=== PATIENT | female | born 1945 | race Caucasian/White ===

== ENCOUNTER 2017-10-19 11:47 | Emergency (ER) | payer MEDICARE ==
[~2017-10-19] VITALS: Ht 165.1 cm; Wt 91.3 kg
[~2017-10-19 11:47] MED LIST: DENO60P SQ; MULTTAB67 PO; PLAQ200T PO; POTA-163 PO
[2017-10-19 12:23] VITALS: BP 151/67; PULSE 103; RESP 16; TEMP 99; O2SAT 94
[2017-10-19] MEDS ORDERED: RESP: ALBUTEROL 2.5 MG/3 ML NEB (SCH) INH ONE (13:00)
[2017-10-19] MEDS ORDERED: predniSONE 20 MG TAB PO ONE (13:00)
--- NOTE | 2017-10-19 13:22 | PD ---
HPI Chief Complaint: Cold / Flu Symptoms Time Seen by Provider: 12:42 Travel History International Travel<30 days: No Contact w/Intl Traveler<30days: No Traveled to known affect area: No History of Present Illness HPI 71-year-old female here with productive cough and wheezing times one week. She reports subjective fevers. Symptom severity is moderate. She denies chest pain or palpitations. She does report intermittent shortness of breath with coughing episodes. Symptoms are unrelieved with [id number] DayQuil and NyQuil. No sick contacts or foreign travel. PFSH Past Medical History Arthritis: Yes Asthma: No Autoimmune Disease: Yes (LUPUS) Blood Disorders: No Anxiety: Yes Depression: Yes Heart Rhythm Problems: Yes Cancer: Yes (LEFT BREAST 2003) Cardiovascular Problems: No High Cholesterol: No Chemotherapy: Yes (2003 2004) Chest Pain: No Congestive Heart Failure: No COPD: No Cerebrovascular Accident: No Diabetes: No Diminished Hearing: No Endocrine: No Gastrointestinal Disorders: Yes (GASTROENTERITIS) GERD: Yes Glaucoma: No Genitourinary: No Headaches: No Hepatitis: No Hiatal Hernia: No Hypertension: No Immune Disorder: No Implanted Vascular Access Dvce: Yes Kidney Stones: No Musculoskeletal: Yes Neurologic: No Psychiatric: No Reproductive: No Respiratory: Yes Immunizations Current: Yes ([id number], HEP B VACC) Migraines: No Myocardial Infarction: No Radiation Therapy: Yes (2003 2004) Renal Failure: No Seizures: No Sickle Cell Disease: No Sleep Apnea: Yes Thyroid Disease: Yes (HYPERPARATHYROIDISM) Ulcer: No ?: Not Menopausal: Yes Dilation and Curettage (D&C): Yes Past Surgical History Abdominal Surgery: Yes (CHOLECYSTECTOMY 2000) AICD: No Appendectomy: No Arteriovenous Shunt: No Cardiac Surgery: No Section: Yes (X 1) Cholecystectomy: Yes Ear Surgery: No Endocrine Surgery: No Eye Surgery: Yes (EDUARDA CATARACTS) Genitourinary Surgery: No Gynecologic Surgery: Yes (C SECTION 1979 D AND C X2) Insulin Pump: No Joint Replacement: Yes (BOTH KNEES) Neurologic Surgery: Yes (CYST RMOVED FROM L5S1) Oral Surgery: Yes (DENTAL IMPLANTS) Pacemaker: No Thoracic Surgery: No Tonsillectomy: Yes Other Surgery: Yes (LEFT BREAST LUMPECTOMY) Social History Alcohol Use: No (OCCASIONAL) Tobacco Use: No (STOPPED 1997-smoked 1/2 for 20+ yrs) Substance Use: No Allergies-Medications (Allergen,Severity, Reaction): Coded Allergies: diclofenac (Verified Allergy, Severe, EDEMA & FACIAL SWELLING, 10/19/17) Reported Meds & Prescriptions Reported Meds & Active Scripts Active Reported Azulfidine (Sulfasalazine) 500 Mg Tab 1,000 Mg PO Q6H Plaquenil (Hydroxychloroquine Sulfate) 200 Mg Tab 200 Mg PO EVERY OTHER DAY Take with food Multiple Vitamin 1 Tab 1 Tab PO DAILY Prolia Inj (Denosumab) 60 Mg/Ml Inj 60 Mg SQ Q180D Review of Systems Except as stated in HPI: all other systems reviewed are Neg General / Constitutional: Positive: Fever Eyes: No: Visual changes HENT: No: Headaches Cardiovascular: No: Chest Pain or Discomfort Respiratory: Positive: Cough, Wheezing Gastrointestinal: No: Abdominal Pain Genitourinary: No: Dysuria Musculoskeletal: No: Pain Skin: No Rash Physical Exam Narrative GENERAL: Alert and well-appearing 71-year-old female SKIN: Warm and dry. No rash HEAD: Normocephalic. EYES: No injection or drainage. NECK: Supple, trachea midline. CARDIOVASCULAR: Regular rate and rhythm without murmurs, gallops, or rubs. RESPIRATORY: Breath sounds equal bilaterally. No accessory muscle use. Faint expiratory wheezes. Rhonchorous cough. GASTROINTESTINAL: Abdomen soft, non-tender, nondistended. MUSCULOSKELETAL: No cyanosis, or edema. BACK: Nontender without obvious deformity. No CVA tenderness. Data Data Last Documented VS Vital Signs Date Time Temp Pulse Resp B/P (MAP) Pulse Ox O2 Delivery O2 Flow Rate FiO2 10/19/17 12:23 99.0 103 16 151/67 (95) 94 Orders Orders Influenzae A/B Antigen (10/19/17 12:54) Chest, Single Ap (10/19/17 12:54) Albuterol Neb (Albuterol Neb) (10/19/17 13:00) Prednisone (Deltasone) (10/19/17 13:00) MDM Medical Decision Making Medical Screen Exam Complete: Yes Emergency Medical Condition: Yes Differential Diagnosis Bronchitis, pneumonia, influenza Narrative Course 71-year-old male here with productive cough and wheezing intermittently times one week. She is nontoxic appearing despite mild abnormalities and vitals. She was 94% on room air. She did have expiratory wheezes. She was given steroids and DuoNeb in the ER and observed. Chest x-ray: No acute disease Influenza: Positive Endings discussed with patient. She was reexamined he is reporting symptom improvement after steroids and albuterol neb. Repeat vitals HR 98, RR 18, 02 97 % She will be treated for influenza a and covered with azithromycin for possible bronchial pneumonia. Diagnosis Primary Impression: Influenza A Additional Impression: Bronchitis Referrals: Primary Care Physician Additional Instructions: Medications as prescribed. Follow-up the primary doctor. Stay well hydrated and rest. Scripts Benzonatate (Tessalon Perles) 100 Mg Cap 200 MG PO TID Y for COUGH for 3 Days, CAP 0 Refills Prov: Sherry Pascal 10/19/17 Albuterol 8.5 GM Inh (Proair Hfa 8.5 GM Inh) 90 Mcg/Act Aer 2 PUFF INH Q4-6H Y for SHORTNESS OF BREATH, #1 INHALER 0 Refills 108 mcg/actuation Prov: Sherry Pascal 10/19/17 Prednisone (Prednisone) 20 Mg Tab 40 MG PO DAILY, #10 TAB 0 Refills Take 40 mg (2 tablets) daily for 5 days Prov: Sherry Pascal 10/19/17 Azithromycin (Azithromycin) 250 Mg Tab 250 MG PO DIRECTED for Infection, #6 TAB 0 Refills Take 2 tabs (500 mg) on day 1 then 1 tab daily x 4 days. Prov: Sherry Pascal 10/19/17 Oseltamivir (Tamiflu) 75 Mg Cap 75 MG PO BID for Mgmt Viral Infection for 5 Days, #10 CAP 0 Refills Prov: Sherry Pascal 10/19/17 Disposition: 01 DISCHARGE HOME Condition: Stable Sherry Pascal Oct 19, 2017 13:22
[2017-10-19] MEDS ORDERED: SULF500 PO (13:28)
--- NOTE | 2017-10-19 14:14 | RADRPT ---
EXAM DATE/TIME: 10/19/2017 13:47 [facility] COMPARISON: No previous studies available for comparison. INDICATIONS : Cough, fever MEDICAL HISTORY : None. SURGICAL HISTORY : None. ENCOUNTER: Initial ACUITY: 2 days PAIN SCORE: 0/10 LOCATION: Bilateral chest FINDINGS: The lungs are clear without infiltrate, nodule, or mass. There is no appreciable pleural effusion fo r technique. Heart and mediastinum are unremarkable. CONCLUSION: No acute cardiopulmonary disease. Shahla Seymour MD on October 19, 2017 at 14:12 Board Certified Radiologist. This report was verified electronically.
[2017-10-19] MEDS ORDERED: OSEL75 PO (14:31)
[2017-10-19] MEDS ORDERED: AZIT250T3 PO (14:31)
[2017-10-19] MEDS ORDERED: BENZ100 PO (14:31)
[2017-10-19] MEDS ORDERED: PRED20 PO (14:31)
[2017-10-19] MEDS ORDERED: ALBUAER3 INH (14:31)
== END 2017-10-19 15:04 | disposition home or self-care (01) ==
LOC: PHEFT 11:47
DX: J40 Bronchitis, not specified as acute or chronic (principal); J10.1 Influenza due to other identified influenza virus with other respiratory manifestations; R06.02 Shortness of breath; M32.9 Systemic lupus erythematosus, unspecified; K21.9 Gastro-esophageal reflux disease without esophagitis
CPT/HCPCS: 71045; 87804; 94664; 99284; J7512; J7613

== ENCOUNTER 2018-05-14 05:12 | Observation (INO) ==
[2018-05-14] MEDS ORDERED: Sod Chloride 0.9% Inj 1,000 ML IV.SIG ONE (05:26)
[2018-05-14] MEDS ORDERED: Famotidine PF Inj 20 MG/2 ML Vial IV.PUSH ONE (05:26)
--- NOTE | 2018-05-14 05:31 | ED ---
HPI General Chief Complaint: Abdominal Pain Stated Complaint: N/V/D,Abd pain all over x 2 hrs Time Seen by Provider: 05/14/18 05:26 Source: patient and family Mode of arrival: ambulatory Limitations: no limitations History of Present Illness HPI narrative: 72-year-old female patient presents to the ER today because she states that she started having nausea, vomiting, diarrhea multiple times tonight , diffuse abdominal pain which she currently rates at a 7 out of 10. She states that the symptoms began around 3 AM. She denies any fevers or any other issues. She does not know of any exacerbating or alleviating factors. She states that she had a fish sandwich at the [employer] this evening, does not know that there is anybody else is sick. Related Data Home Medications Medication Instructions Recorded Confirmed cranberry 1 cap PO DAILY 05/14/18 05/14/18 hydroxychloroquine [Plaquenil] 200 mg PO DAILY 05/14/18 05/14/18 mirabegron [Myrbetriq] 50 mg PO DAILY 05/14/18 05/14/18 omeprazole magnesium [Prilosec OTC] 20 mg PO DAILY 05/14/18 05/14/18 sulfasalazine 500 mg PO DAILY 05/14/18 05/14/18 Allergies Allergy/AdvReac Type Severity Reaction Status Date / Time diclofenac Allergy Severe EDEMA & Verified 05/14/18 06:28 FACIAL SWELLING Review of Systems ROS: all other systems reviewed are negative PMFSH History History Provided By: Patient and Family Member Medical History Medical History Autoimmune disease (Acute) Breast cancer (Acute) Fracture of L2 vertebra (Acute) Gastric ulcer (Acute) T12 vertebral fracture (Acute) Surgical History Surgical History H/O laparoscopic adjustable gastric banding (Acute) H/O repair of rotator cuff (Acute) H/O: section (Acute) History of lumpectomy of left breast (Acute) History of parathyroidectomy (Acute) Hx of cholecystectomy (Acute) Hx of knee surgery (Acute) Family History Family History Other Hypertension Social History Social History Substance History: No History of Abuse Second Hand Smoke Exposure: No Smoking Status: Former smoker Tobacco Type: Cigarettes How Often Do You Have a Drink Containing Alcohol: Monthly or less Recent Out of Country Travel within the Last 8 Weeks: No Exam Narrative Exam Narrative: GENERAL: Well-developed elderly female patient currently in moderate distress. Awake and oriented 3. SKIN: Focused skin assessment warm/dry. HEAD: Atraumatic. Normocephalic. EYES: Pupils equal and round. No scleral icterus. No injection or drainage. ENT: No nasal bleeding or discharge. Mucous membranes pink and moist. NECK: Trachea midline. No JVD. CARDIOVASCULAR: Regular rate and rhythm. No murmur appreciated. RESPIRATORY: No accessory muscle use. Clear to auscultation. Breath sounds equal bilaterally. GASTROINTESTINAL: Abdomen soft, mild diffuse abdominal tenderness without guarding rebound, nondistended. Hepatic and splenic margins not palpable. MUSCULOSKELETAL: No obvious deformities. No clubbing. No cyanosis. No edema. NEUROLOGICAL: Awake and alert. No obvious cranial nerve deficits. Motor grossly within normal limits. Normal speech. PSYCHIATRIC: Appropriate mood and affect; insight and judgment normal. Course Initial Documented Vital Signs Temperature 97.5 F L 05/14/18 05:17 Pulse Rate 94 H 05/14/18 05:17 Respiratory Rate 18 05/14/18 05:17 Blood Pressure 141/68 H 05/14/18 05:17 Pulse Oximetry 96 05/14/18 05:17 Last Documented Vital Signs Temperature 98.2 F 05/15/18 08:00 Pulse Rate 72 05/15/18 08:00 Respiratory Rate 20 05/15/18 08:00 Blood Pressure 129/59 L 05/15/18 08:00 Pulse Oximetry 91 L 05/15/18 08:00 Sign Out Sign Out Data: Patient Sign Out occurred on 05/14/18 at 06:54. Patient's care was discussed, and care was transferred from Quentin Navarro MD to Alejandra Allison DO. Sign Out Comment: Patient signed out to oncoming physician at 7 AM awaiting CAT scan findings. CBC shows significant leukocytosis. Disposition based on CAT scan finding and reevaluation. Last updated by Quentin Navarro MD at 05/14/18 06:48 Post-Handoff Eval: Received sign out from previous physician to follow up CT a/p. 72yo F here with nausea, vomiting, abdominal pain and diarrhea that started at 3am today. Labs reviewed, leukocytosis at 24,600. Neutrophil 83%. Pt said that is very high for her and she normally has normal WBC. Last lab I have to compare is in 2013 and it was normal. H/H normal. BUN mildly elevated at 19. Pt has history of breast cancer s/p lumpectomy and chemo/radiation therapy in 2004 and has yearly follow up with Dr. Zhao. She also has an autoimmune disease that she said her button machine operator said is not lupus but she has to be on lifelong medications. She is on plaquenil which is immunosuppressive. CT a/p showed no acute abnormality. Mild biliary dilatation likely reflecting a reservoir phenomenon following cholecystectomy. Stable 1cm hypodensity in the spleen. Nonspecific. Lap band in place. Degenerative change in lumbar spine. Pt reevaluated at bedside after the NS IVF and zofran given by previous team. Said she is still nauseous so I gave her reglan. Pt said she had UTI 2 weeks ago and was on antibiotics. Will send stool for cdiff. UA showed no leukocyte. No ketone. No nitrate. Pt reevaluated and still feels nauseous. Pt has not vomited here but still does not feel well. Will observe and admit for further evaluation. Discussed with Dr. Hassan and accepted to his service. Medical Decision Making MDM Narrative Medical decision making narrative: Was given IV fluids, Zofran, and lab work and CAT scan were ordered for the patient. Medical Screen Exam Complete: Yes Emergency Medical Condition: Yes Differential Diagnosis Differential Diagnosis: Gastroenteritis versus food poisoning versus dehydration versus electrolyte abnormalities versus acute intra-abdominal processes Lab Data Result diagrams: 05/15/18 05:12 05/15/18 05:12 Lab Results 05/14/18 05/14/18 05/14/18 Range/Units 05:45 05:45 07:40 CBC w Diff Auto diff final WBC 24.6 H (4.0-11.0) th/mm3 RBC 4.68 (4.00-5.30) mil/mm3 Hgb 13.9 (11.6-15.3) gm/dL Hct 41.4 (35.0-46.0) % MCV 88.4 (80.0-100.0) fL MCH 29.6 (27.0-34.0) pg MCHC 33.5 (32.0-36.0) % RDW 12.6 (11.6-17.2) % Plt Count 326 (150-450) th/mm3 MPV 9.0 (7.0-11.0) fL Neut % (Auto) 80.3 H (16.0-70.0) % Lymph % (Auto) 6.6 L (9.0-44.0) % [place] % (Auto) 8.6 H (0.0-8.0) % Eos % (Auto) 1.7 (0.0-4.0) % Baso % (Auto) 2.8 H (0.0-2.0) % Neut # (Auto) 19.8 H (1.8-7.7) th/mm3 Lymph # (Auto) 1.6 (1.0-4.8) th/mm3 [place] # (Auto) 2.1 H (0.0-0.9) th/mm3 Eos # (Auto) 0.4 (0.0-0.4) th/mm3 Baso # (Auto) 0.7 H (0.0-0.2) th/mm3 WBC Differential . Differential Comment . Sodium 139 (136-145) meq/L Potassium 3.4 L (3.5-5.1) meq/L Chloride 105 (98-107) meq/L Carbon Dioxide 25.4 (21.0-32.0) meq/L Anion Gap 9 (5-15) meq/L BUN 19 H (7-18) mg/dL Creatinine 0.95 (0.50-1.00) mg/dL Estimated GFR 58 L (>89) mL/min Random Glucose 117 H (74-106) mg/dL Calcium 9.1 (8.5-10.1) mg/dL Total Bilirubin 0.3 (0.2-1.0) mg/dL AST 20 (15-37) U/L ALT 23 (10-53) U/L Alkaline Phosphatase 98 (45-117) U/L Total Protein 7.6 (6.4-8.2) g/dL Albumin 3.6 (3.4-5.0) g/dL Lipase 171 (73-393) U/L Ur Collection Type Clean catch Urine Color Yellow (Yellw/Straw) Urine Clarity Clear (Clear) Urine pH 6.0 (5.0-8.5) Ur Specific [place] Less/equal 1.005 (1.002-1.035) Urine Protein Negative (Neg-Trace) mg/dL Urine Glucose (UA) Negative (Negative) mg/dL Urine Ketones Negative (Negative) mg/dL Urine Occult Blood Negative (Negative) Urine Nitrate Negative (Negative) Urine Bilirubin Negative (Negative) Urine Urobilinogen 0.2 (Less than 2) mg/dL Ur Leukocyte Esterase Negative (Negative) Urine RBC 0-3 (0-3) /hpf Ur Squamous Epith Cells 0-5 (0-5) /hpf Micro UA Comment Culture not ind Urine Culture Comments Culture not ind 05/15/18 05/15/18 Range/Units 05:12 05:12 CBC w Diff WBC 7.0 D (4.0-11.0) th/mm3 RBC 3.89 L (4.00-5.30) mil/mm3 Hgb 11.2 L D (11.6-15.3) gm/dL Hct 34.4 L (35.0-46.0) % MCV 88.4 (80.0-100.0) fL MCH 28.7 (27.0-34.0) pg MCHC 32.4 (32.0-36.0) % RDW 12.9 (11.6-17.2) % Plt Count 267 (150-450) th/mm3 MPV 9.1 (7.0-11.0) fL Neut % (Auto) (16.0-70.0) % Lymph % (Auto) (9.0-44.0) % [place] % (Auto) (0.0-8.0) % Eos % (Auto) (0.0-4.0) % Baso % (Auto) (0.0-2.0) % Neut # (Auto) (1.8-7.7) th/mm3 Lymph # (Auto) (1.0-4.8) th/mm3 [place] # (Auto) (0.0-0.9) th/mm3 Eos # (Auto) (0.0-0.4) th/mm3 Baso # (Auto) (0.0-0.2) th/mm3 WBC Differential Differential Comment Sodium 142 (136-145) meq/L Potassium 3.4 L (3.5-5.1) meq/L Chloride 109 H (98-107) meq/L Carbon Dioxide 26.6 (21.0-32.0) meq/L Anion Gap 6 (5-15) meq/L BUN 10 (7-18) mg/dL Creatinine 0.71 (0.50-1.00) mg/dL Estimated GFR 81 L (>89) mL/min Random Glucose 84 (74-106) mg/dL Calcium 8.0 L D (8.5-10.1) mg/dL Total Bilirubin (0.2-1.0) mg/dL AST (15-37) U/L ALT (10-53) U/L Alkaline Phosphatase (45-117) U/L Total Protein (6.4-8.2) g/dL Albumin (3.4-5.0) g/dL Lipase (73-393) U/L Ur Collection Type Urine Color (Yellw/Straw) Urine Clarity (Clear) Urine pH (5.0-8.5) Ur Specific [place] (1.002-1.035) Urine Protein (Neg-Trace) mg/dL Urine Glucose (UA) (Negative) mg/dL Urine Ketones (Negative) mg/dL Urine Occult Blood (Negative) Urine Nitrate (Negative) Urine Bilirubin (Negative) Urine Urobilinogen (Less than 2) mg/dL Ur Leukocyte Esterase (Negative) Urine RBC (0-3) /hpf Ur Squamous Epith Cells (0-5) /hpf Micro UA Comment Urine Culture Comments Imaging Data Radiologist's impression: Abdomen/Pelvis CT 05/14/18 05:26 CONCLUSION: 1. No acute abnormality is seen. 2. Mild biliary dilatation likely reflecting a reservoir phenomenon following cholecystectomy. 3. Stable 1 cm hypodensity in the spleen. This is nonspecific. It likely represents a cyst or hemangioma. 4. Lap band in place. 5. Degenerative change in the lumbar spine. Discharge Plan Discharge Disposition Patient Disposition: 30 Still Patient Discharge Condition Condition: Good Discharge Order Discharge Orders: Discharge Order (Routine); Ordered 05/15/18 Ordered By: Elie Hassan Discharge Details Diagnosis: Leukocytosis Physicians Team ED Provider: Alejandra Allison Primary Care Provider: Rubén Thompson Attending Provider: Elie Hassan Status ED Status: Left Department Discharge Information Discharge Date/Time: 05/14/18 10:04
[2018-05-14 06:06] LABS: Baso # (Auto) 0.7 th/mm3 (0.0-0.2); Baso % (Auto) 2.8 % (0.0-2.0); Eos # (Auto) 0.4 th/mm3 (0.0-0.4); Eos % (Auto) 1.7 % (0.0-4.0); Hematocrit 41.4 % (35.0-46.0); Hemoglobin 13.9 gm/dL (11.6-15.3); Lymph # (Auto) 1.6 th/mm3 (1.0-4.8); Lymph % (Auto) 6.6 % (9.0-44.0); Mean Corpuscular HGB Conc 33.5 % (32.0-36.0); Mean Corpuscular Hemoglobin 29.6 pg (27.0-34.0); Mean Corpuscular Volume 88.4 fL (80.0-100.0); Mono # (Auto) 2.1 th/mm3 (0.0-0.9); Mono % (Auto) 8.6 % (0.0-8.0); Neut # (Auto) 19.8 th/mm3 (1.8-7.7); Neut % (Auto) 80.3 % (16.0-70.0); Platelet Count 326 th/mm3 (150-450); Red Blood Count 4.68 mil/mm3 (4.00-5.30); Red Cell Distribution Width 12.6 % (11.6-17.2); White Blood Count 24.6 th/mm3 (4.0-11.0)
[2018-05-14 06:16] LABS: Chloride 105 meq/L (98-107); Potassium 3.4 meq/L (3.5-5.1); Sodium 139 meq/L (136-145)
[2018-05-14 06:19] LABS: Calcium 9.1 mg/dL (8.5-10.1)
[2018-05-14 06:20] LABS: Albumin 3.6 g/dL (3.4-5.0); Anion Gap 9 meq/L (5-15); Blood Urea Nitrogen 19 mg/dL (7-18); Carbon Dioxide 25.4 meq/L (21.0-32.0); Glucose,Random 117 mg/dL (74-106); Lipase 171 U/L (73-393)
[2018-05-14 06:22] LABS: Alanine Aminotransferase 23 U/L (10-53)
[2018-05-14 06:23] LABS: Aspartate Aminotransferase 20 U/L (15-37); Glomerular Filtration Rate 58 mL/min (>89)
[2018-05-14 06:24] LABS: Total Protein 7.6 g/dL (6.4-8.2)
[2018-05-14 06:25] LABS: Alkaline Phosphatase 98 U/L (45-117)
--- NOTE | 2018-05-14 07:00 | CT ---
EXAM DATE: 05/14/2018 6:53 AM EDT AGE/SEX: 72 years / Female INDICATIONS: Abdominal pain and diarrhea. Patient states she may have food poisoning. CLINICAL DATA: This is the patient's initial encounter. Patient reports that signs and symptoms have been present for 1 day and indicates a pain score of 6/10. MEDICAL/SURGICAL HISTORY: None. section. Cholecystectomy. Lap band ORAL CONTRAST: No oral contrast ingested. RADIATION DOSE: 20.18 CTDI (mGy) COMPARISON: POI, CT ABDOMEN AND PELVIS W/ CONTRAST, 03/02/2018. . TECHNIQUE: Multiple contiguous axial images were obtained through the abdomen and pelvis following b olus infusion of 95 ml Omnipaque 350 (iohexol) nonionic water-soluble contrast as a single exam dos e. No oral contrast ingested. Using automated exposure control and adjustment of the mA and/or kV ac cording to patient size, radiation dose was kept as low as reasonably achievable to obtain optimal di agnostic quality images. DICOM format image data is available electronically for review and comparis on. FINDINGS: Lower Lungs: There is mild increased density in the subpleural region at the bases being worse on the right likely related to atelectasis. Liver: The liver has a homogeneous density without space-occupying lesion. There is mild central intr ahepatic biliary duct dilatation and dilatation the common bile duct which may reflect a reservoir ph enomenon. This appearance is unchanged.. Patient is status post cholecystectomy. Spleen: There is a nonspecific stable 1 cm hypodensity seen at the spleen. Pancreas: Unremarkable without mass or calcification. Kidneys: Normal in size and shape. No evidence of hydronephrosis. Small bilateral renal cysts are se en. Adrenal Glands: Unremarkable. Aorta: The aorta and proximal iliac vessels are grossly unremarkable without aneurysmal dilation. T here are scattered atherosclerotic calcifications seen. Bowel/Mesentery: There is a lap band in place. The bowel appears normal. Abdominal Wall: Intact. Retroperitoneum: No evidence of adenopathy in the retrocrural, para-aortic, or deep pelvic regions. Bladder: Contours are smooth. Reproductive Organs: No abnormal masses or calcifications seen. Inguinal: The inguinal region is unremarkable without evidence of adenopathy. Bony Structures: There is degenerative change in the lumbar spine. CONCLUSION: 1. No acute abnormality is seen. 2. Mild biliary dilatation likely reflecting a reservoir phenomenon following cholecystectomy. 3. Stable 1 cm hypodensity in the spleen. This is nonspecific. It likely represents a cyst or jodi ioma. 4. Lap band in place. 5. Degenerative change in the lumbar spine. Electronically signed by: Efren Tyson MD 05/14/2018 6:58 AM EDT
[2018-05-14] MEDS ORDERED: Metoclopramide Inj 10 MG in Sodium Chlor 0.9% Inj 50 ML IV.SIG ONE (07:21)
[2018-05-14 07:45] LABS: Bilirubin,Urine Negative (Negative); Clarity,Urine Clear (Clear); Color,Urine Yellow (Yellw/Straw); Glucose,Urine (UA) Negative (Negative); Leukocyte Esterase,Urine Negative (Negative); Nitrite,Urine Negative (Negative); Specific Gravity,Urine Less/Equal 1.005 (1.002-1.035); Urobilinogen,Urine 0.2 mg/dL (Less than 2)
[2018-05-14 07:53] LABS: RBC,Urine 0-3 /hpf (0-3); Squamous Epithelial Cell,Urine 0-5 /hpf (0-5)
[2018-05-14] MEDS ORDERED: Acetaminophen 325 MG Tablet PO PRN (14:26)
[2018-05-14] MEDS: Sod Chloride 0.9% Inj 1,000 ML IV.CONT SCH (15:32)
[2018-05-14] MEDS: Ciprofloxacin 500 MG Tablet PO SCH ×2 (15:32→21:00)
--- NOTE | 2018-05-14 17:05 | P.HP ---
History of Present Illness Primary Care Physician: Rubén Thompson MD History of Present Illness: 72-year-old female with a history of autoimmune disorder and breast cancer. She went out to eat at a seafood restaurant yesterday and had black emesis, onion rings, Tea. She went home and felt fine, fell asleep without distress. She awoke at 3 AM feeling nauseous, rest of the toilet and vomited. She had some mild abdominal discomfort at that time but was able to fall back asleep. Later in the morning she awoke with more severe symptoms vomited in the bathroom of her bedroom, then went downstairs and vomited 2 times more. 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 In the ER she was given a bolus and admitted for intractable nausea and vomiting. She denies any chest pain, diaphoresis, irregular heartbeat. She denies any focal weakness, slurring of speech, disorganized thoughts. Review of Systems All other systems reviewed negative except as stated in HPI PMFSH - History History Provided By: Patient - Medical History Medical History: Medical History (Last Updated 05/14/18 @ 06:18 by Candie Quispe RN) Breast cancer Fracture of L2 vertebra T12 vertebral fracture Autoimmune disease Gastric ulcer - Surgical History Surgical History: Surgical History (Last Updated 05/14/18 @ 06:18 by Candie Quispe RN) H/O repair of rotator cuff H/O: section History of lumpectomy of left breast History of parathyroidectomy Hx of cholecystectomy Hx of knee surgery H/O laparoscopic adjustable gastric banding - Family History Family History: Family History (Last Updated 05/14/18 @ 17:03 by Elie Hassan MD) Other Hypertension - Tobacco History Second Hand Smoke Exposure: No Tobacco Use In Past 30 Days: No Smoking Status: Former smoker Tobacco Type: Cigarettes - Alcohol History How Often Do You Have a Drink Containing Alcohol: Monthly or less - Substance Use History Substance History: No History of Abuse - Travel History Recent Travel Out of the Country Within the Last 8 Weeks: No - Immunization History Tetanus Immunization: <5 Years Hx Influenza Vaccine This Season: Yes Medications and Allergies Active Medications: Active Medications Acetaminophen (Tylenol) 650 mg PO Q4H PRN PRN Reason: Temp > 100.4 Al Hydroxide/Mg Hydroxide (Milk Of Magnesia Liq) 30 ml PO Q12H PRN PRN Reason: Mild Constipation Ciprofloxacin HCl (Cipro) 500 mg PO Q12HR [facility] Last Admin: 05/14/18 15:32 Dose: 500 mg Sodium Chloride (Ns Inj) 1,000 mls @ 100 mls/hr IV.CONT .Q10H PATY Last Admin: 05/14/18 15:32 Dose: 100 mls/hr Sodium Chloride (Ns Flush) 2 ml IV.FLUSH PRN PRN PRN Reason: FLUSH AFTER USING IV ACCESS Last Admin: 05/14/18 05:44 Dose: 2 ml Temazepam (Restoril) 15 mg PO HS PRN PRN Reason: INSOMNIA Allergies Allergy/AdvReac Type Severity Reaction Status Date / Time diclofenac Allergy Severe EDEMA & Verified 05/14/18 06:28 FACIAL SWELLING Home Medications Medication Instructions Recorded Confirmed Type cranberry 1 cap PO DAILY 05/14/18 05/14/18 History hydroxychloroquine [Plaquenil] 200 mg PO DAILY 05/14/18 05/14/18 History mirabegron [Myrbetriq] 50 mg PO DAILY 05/14/18 05/14/18 History omeprazole magnesium [Prilosec OTC] 20 mg PO DAILY 05/14/18 05/14/18 History sulfasalazine 500 mg PO DAILY 05/14/18 05/14/18 History Exam Vital signs: Vital Signs 05/14/18 05:17 05/14/18 05:27 05/14/18 06:36 Temperature 97.5 F L Pulse Rate 94 H 83 Respiratory Rate 18 20 Blood Pressure 141/68 H 127/52 L Pulse Oximetry 96 93 L 94 L 05/14/18 08:55 05/14/18 11:00 Temperature 98.3 F 97.3 F L Pulse Rate 90 84 Respiratory Rate 16 20 Blood Pressure 123/60 108/59 L Pulse Oximetry 97 95 Intake & Output 05/13/18 05/14/18 05/14/18 18:59 06:59 18:59 Intake Total 1052 / 1052 Balance 1052 / 1052 Weight 90.9 kg Intake: IV 1052 / 1052 Reglan Inj 10 MG In NS Inj 50 52 / 52 ML @ 104 mls/hr IV.SIG ONCE ONE Rx#:[id number] NS Inj 1,000 ML @ Wide Open IV. 1000 / 1000 SIG BOLUS ONE Rx#:[id number] Other: Date of Last Bowel Movement 05/14/18 Narrative: GENERAL: AAOx3, no acute distress, adequate nutrition, obese SKIN: Warm and dry, no rashes. HEAD: Atraumatic. Normocephalic. EYES: Pupils equal, round, reactive to light. No scleral icterus. No injection or drainage. ENT: No nasal bleeding or discharge. Moist mucous membranes. Nonerythematous oropharynx. NECK: Trachea midline. No JVD. Thyroid size within normal limits. CARDIOVASCULAR: Regular rate and rhythm. No murmur, no gallops, no rubs. RESPIRATORY: Clear and equal to auscultation bilaterally. No crackles, no wheezes. No accessory muscle use. GASTROINTESTINAL: Abdomen soft, mild diffuse tenderness, nonfocal, nondistended , normal active bowel sounds. Hepatic and splenic margins not palpable. MUSCULOSKELETAL: Extremities without clubbing or cyanosis. No obvious deformities. No edema. NEUROLOGICAL: Awake and alert. No obvious cranial nerve deficits. Motor grossly within normal limits. No focal deficits. Five out of 5 muscle strength in the arms and legs. Normal speech. PSYCHIATRIC: Appropriate mood and affect; insight and judgment normal. Results - Labs CBC & Chem 7: 05/14/18 05:45 05/14/18 05:45 Labs: Laboratory Results - last 24 hr 05/14/18 05/14/18 05/14/18 05:45 05:45 07:40 CBC w Diff Auto diff final WBC 24.6 H RBC 4.68 Hgb 13.9 Hct 41.4 MCV 88.4 MCH 29.6 MCHC 33.5 RDW 12.6 Plt Count 326 MPV 9.0 Neut % (Auto) 80.3 H Lymph % (Auto) 6.6 L [place] % (Auto) 8.6 H Eos % (Auto) 1.7 Baso % (Auto) 2.8 H Neut # (Auto) 19.8 H Lymph # (Auto) 1.6 [place] # (Auto) 2.1 H Eos # (Auto) 0.4 Baso # (Auto) 0.7 H WBC Differential . Differential Comment . Sodium 139 Potassium 3.4 L Chloride 105 Carbon Dioxide 25.4 Anion Gap 9 BUN 19 H Creatinine 0.95 Estimated GFR 58 L Random Glucose 117 H Calcium 9.1 Total Bilirubin 0.3 AST 20 ALT 23 Alkaline Phosphatase 98 Total Protein 7.6 Albumin 3.6 Lipase 171 Ur Collection Type Clean catch Urine Color Yellow Urine Clarity Clear Urine pH 6.0 Ur Specific Downs Less/equal 1.005 Urine Protein Negative Urine Glucose (UA) Negative Urine Ketones Negative Urine Occult Blood Negative Urine Nitrate Negative Urine Bilirubin Negative Urine Urobilinogen 0.2 Ur Leukocyte Esterase Negative Urine RBC 0-3 Ur Squamous Epith Cells 0-5 Micro UA Comment Culture not ind Urine Culture Comments Culture not ind - Imaging Impressions Abdomen/Pelvis CT 05/14/18 05:26 CONCLUSION: 1. No acute abnormality is seen. 2. Mild biliary dilatation likely reflecting a reservoir phenomenon following cholecystectomy. 3. Stable 1 cm hypodensity in the spleen. This is nonspecific. It likely represents a cyst or hemangioma. 4. Lap band in place. 5. Degenerative change in the lumbar spine. Caprini VTE Risk Assessment Caprini VTE Risk Assessment: Moderate/High Risk (score >= 2) Caprini Risk Assessment Model: Point Value = 1 Point Value = 2 Point Value = 3 Point Value = 5 Age 41-60 Minor surgery BMI > 25 kg/m2 Swollen legs Varicose veins or History of unexplained or recurrent spontaneous Oral contraceptives or hormone replacement Sepsis (< 1 month) Serious lung disease, including pneumonia (< 1 month) Abnormal pulmonary function Acute myocardial infarction Congestive heart failure (< 1 month) History of inflammatory bowel disease Medical patient at bed rest Age 61-74 Arthroscopic surgery Major open surgery (> 45 min) Laparoscopic surgery (> 45 min) Malignancy Confined to bed (> 72 hours) Immobilizing plaster cast Central venous access Age >= 75 History of VTE Family history of VTE Factor V Leiden Prothrombin [id number] Lupus anticoagulant Anticardiolipin antibodies Elevated serum homocysteine Heparin-induced thrombocytopenia Other congenital or acquired thrombophilia Stroke (< 1 month) Elective arthroplasty Hip, pelvis, or leg fracture Acute spinal cord injury (< 1 month) Prophylaxis Regimen: Total Risk Factor Score Risk Level Prophylaxis Regimen 0-1 Low Early ambulation 2 Moderate Order ONE of the following: *Sequential Compression Device (SCD) *Heparin 5000 units SQ BID 3-4 Higher Order ONE of the following medications: *Heparin 5000 units SQ TID *Enoxaparin/Lovenox 40 mg SQ daily (WT < 150 kg, CrCl > 30 mL/min) *Enoxaparin/Lovenox 30 mg SQ daily (WT < 150 kg, CrCl > 10-29 mL/min) *Enoxaparin/Lovenox 30 mg SQ BID (WT < 150 kg, CrCl > 30 mL/min) AND/OR *Sequential Compression Device (SCD) 5 or more Highest Order ONE of the following medications: *Heparin 5000 units SQ TID (Preferred with Epidurals) *Enoxaparin/Lovenox 40 mg SQ daily (WT < 150 kg, CrCl > 30 mL/min) *Enoxaparin/Lovenox 30 mg SQ daily (WT < 150 kg, CrCl > 10-29 mL/min) *Enoxaparin/Lovenox 30 mg SQ BID (WT < 150 kg, CrCl > 30 mL/min) AND *Sequential Compression Device (SCD) Assessment and Plan - Plan Food poisoning History demonstrates that this is likely food poisoning Patient is dehydrated, rehydrate with IV fluids overnight Begin full liquid diet, advance as tolerated Start oral ciprofloxacin for total of 3 doses If patient is stable by tomorrow she may go home DVT prophylaxis Patient was retching for more than 6 hours, recommend ambulation avoid chemoprophylaxis at this time due to GI bleeding risk
[2018-05-14] MEDS ORDERED: Temazepam 15 MG Capsule PO PRN (21:00)
[2018-05-15] MEDS: Sod Chloride 0.9% Inj 1,000 ML IV.CONT SCH ×2 (01:59→11:39)
[2018-05-15 06:09] LABS: Hematocrit 34.4 % (35.0-46.0); Hemoglobin 11.2 gm/dL (11.6-15.3); Mean Corpuscular HGB Conc 32.4 % (32.0-36.0); Mean Corpuscular Hemoglobin 28.7 pg (27.0-34.0); Mean Corpuscular Volume 88.4 fL (80.0-100.0); Mean Platelet Volume 9.1 fL (7.0-11.0); Platelet Count 267 th/mm3 (150-450); Red Blood Count 3.89 mil/mm3 (4.00-5.30); Red Cell Distribution Width 12.9 % (11.6-17.2)
[2018-05-15 06:16] LABS: Potassium 3.4 meq/L (3.5-5.1)
[2018-05-15 06:24] LABS: Carbon Dioxide 26.6 meq/L (21.0-32.0)
[2018-05-15] MEDS: Ciprofloxacin 500 MG Tablet PO SCH (08:09)
--- NOTE | 2018-05-15 08:44 | P.DS ---
Date of admission: 05/14/18 09:06 Primary care physician: Rubén Thompson MD Brief History from admission: 72-year-old female with a history of autoimmune disorder and breast cancer. She went out to eat at a seafood restaurant yesterday and had black emesis, onion rings, Tea. She went home and felt fine, fell asleep without distress. She awoke at 3 AM feeling nauseous, rest of the toilet and vomited. She had some mild abdominal discomfort at that time but was able to fall back asleep. Later in the morning she awoke with more severe symptoms vomited in the bathroom of her bedroom, then went downstairs and vomited 2 times more. 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 In the ER she was given a bolus and admitted for intractable nausea and vomiting. She denies any chest pain, diaphoresis, irregular heartbeat. She denies any focal weakness, slurring of speech, disorganized thoughts. DS: Summary Hospital Course: 72-year-old female admitted for intractable nausea vomiting diarrhea. The most highly suspicious because of this with eating out at a restaurant, she had black and fish with onion rings and tea. Onset of symptoms was 4-5 hours after her meal. She responded well to IV fluid rehydration and oral supplementation with liquid diet. She had a total of 3 doses of ciprofloxacin which is sufficient for treatment of food poisoning. She feels much better today, strength has returned. She is requesting to go home and is stable for discharge. - Time Spent with Patient Total time spent providing and/or coordinating discharge services: Less than 30 minutes - Quality: VTE Deep Vein Thrombosis/Pulmonary Embolism Present on Admission: No Exam Vital signs: Vital Signs 05/14/18 08:55 05/14/18 11:00 05/14/18 16:00 Temperature 98.3 F 97.3 F L 99 F Pulse Rate 90 84 81 Respiratory Rate 16 20 20 Blood Pressure 123/60 108/59 L 121/56 L Pulse Oximetry 97 95 95 05/14/18 20:00 05/15/18 00:00 Temperature 97.3 F L 96.8 F L Pulse Rate 74 77 Respiratory Rate 20 20 Blood Pressure 112/59 L 137/61 Pulse Oximetry 92 L 96 Intake & Output 05/14/18 05/15/18 05/15/18 18:59 06:59 18:59 Intake Total 1052 / 1052 1060 / 1060 Balance 1052 / 1052 1060 / 1060 Weight 98 kg 92.9 kg Intake: IV 1052 / 1052 1000 / 1000 NS Inj 1,000 ML @ 100 mls/hr IV 1000 / 1000 .CONT .Q10H PATY Rx#:[id number] Reglan Inj 10 MG In NS Inj 50 52 / 52 ML @ 104 mls/hr IV.SIG ONCE ONE Rx#:[id number] NS Inj 1,000 ML @ Wide Open IV. 1000 / 1000 SIG BOLUS ONE Rx#:[id number] Oral 0 / 0 60 / 60 Other: # Voids 3 3 Date of Last Bowel Movement 05/14/18 05/14/18 # Bowel Movements 0 Weight On Admission 198 kg Results Procedures completed during hospitalization: none Labs on day of discharge: Labs from last 24 hours 05/15/18 05/15/18 05:12 05:12 WBC 7.0 D RBC 3.89 L Hgb 11.2 L D Hct 34.4 L MCV 88.4 MCH 28.7 MCHC 32.4 RDW 12.9 Plt Count 267 MPV 9.1 Sodium 142 Potassium 3.4 L Chloride 109 H Carbon Dioxide 26.6 Anion Gap 6 BUN 10 Creatinine 0.71 Estimated GFR 81 L Random Glucose 84 Calcium 8.0 L D - Impressions ITS Impressions Abdomen/Pelvis CT 05/14/18 05:26 CONCLUSION: 1. No acute abnormality is seen. 2. Mild biliary dilatation likely reflecting a reservoir phenomenon following cholecystectomy. 3. Stable 1 cm hypodensity in the spleen. This is nonspecific. It likely represents a cyst or hemangioma. 4. Lap band in place. 5. Degenerative change in the lumbar spine. Discharge Plan - Discharge Disposition Patient Disposition: 01 Discharge Home - Discharge Condition Condition: Good - Discharge Order Discharge Orders: Discharge Order (Routine); Ordered 05/15/18 Ordered By: Elie Hassan - Physicians Team Primary Care Provider: Rubén Thompson Attending Provider: Elie Hassan
== END 2018-05-15 12:33 | disposition home or self-care (01) ==
LOC: PHEDA 05:12 → PHED 05:12 → PH3 05:12
PROVIDERS: ADMIT Family Medicine; ATTEND Family Medicine
DX: Z82.49 Family history of ischemic heart disease and other diseases of the circulatory system; D72.829 Elevated white blood cell count, unspecified; F17.210 Nicotine dependence, cigarettes, uncomplicated; Z92.3 Personal history of irradiation; R10.9 Unspecified abdominal pain; D89.89 Other specified disorders involving the immune mechanism, not elsewhere classified; C50.919 Malignant neoplasm of unspecified site of unspecified female breast; Z90.49 Acquired absence of other specified parts of digestive tract